=== PATIENT | female | born 1975 | race African-American/Black ===

== ENCOUNTER 2018-02-21 16:31 | Emergency (ER) | payer OTHER ==
[2018-02-21 16:36] VITALS: TEMP 98; BMI 32.3
--- NOTE | 2018-02-21 16:36 | PDOC ---
Rapid Medical Evaluation Time Seen by Provider: 02/21/18 16:32 Medical Evaluation: Allergies Allergy/AdvReac Type Severity Reaction Status Date / Time No Known Allergies Allergy Verified 08/26/17 17:34 I have performed a brief in-person evaluation of this patient. The patient presents with a chief complaint of: took catapress patch off today. dizziness, body aches x 2 days Pertinent physical exam findings: 160/103 BP I have ordered the following: labs, hcg, EKG The patient will proceed to the ED for further evaluation. Discharge Disposition - Diagnosis Headache, HTN (hypertension) - Referrals - Patient Instructions - Post Discharge Activity
[2018-02-21 16:57] LABS: BASO % 0.9 % (0-2.0); EOS % 4.7 % (0-4.5); HEMATOCRIT 37.5 % (32.4-45.2); HEMOGLOBIN 12.6 GM/dL (10.7-15.3); LYMPH % 17.6 % (8-40); MCH 30.3 pg (25.7-33.7); MCHC 33.5 g/dl (32.0-36.0); MEAN CELL VOLUME 90.3 fl (80-96); MEAN PLT VOLUME 9.1 fl (7.5-11.1); MONO % 4.5 % (3.8-10.2); NEUT % 72.3 % (42.8-82.8); PLATELET COUNT 267 K/MM3 (134-434); RBC 4.15 M/mm3 (3.60-5.2); RDW 13.8 % (11.6-15.6); WHITE BLOOD COUNT 11.9 K/mm3 (4.0-10.0)
--- NOTE | 2018-02-21 17:00 | PDOC ---
History of Present Illness - General Chief Complaint: Blood Pressure Problem Stated Complaint: PCP SENT Time Seen by Provider: 02/21/18 16:32 - History of Present Illness Initial Comments: 02/21/18 17:31 The patient is a 42 year old female with a history of HTN, HLD who presents for evaluation of elevated blood pressure. The patient reports a 2 day history of migraine headache and generalized body aches following a viral GI illness. She noted that she presented to her GI specialist 1 day ago and was noted to be dehydrated. Today she presented to her primary care provider who noted her blood pressure to be elevated. The patient notes that she is on a clonadine patch and discontinued that patch today and usually reapplies it the next day. She otherwise denies fevers, chills, SOB, chest pain, nausea, vomiting, abdominal pain, numbness, weakness, or changes with urination or bowel movements. Past History - Past Medical History Allergies/Adverse Reactions: Allergies Allergy/AdvReac Type Severity Reaction Status Date / Time No Known Allergies Allergy Verified 02/21/18 16:33 Home Medications: Ambulatory Orders Labetalol HCl 400 mg PO BID 07/20/12 Loratadine [Claritin] 10 mg PO HS 07/20/12 Atorvastatin Ca [Lipitor] 20 mg PO HS 08/26/17 Clonidine HCl 0.3 mg PO BID 08/26/17 Losartan Potassium 25 mg PO DAILY 08/26/17 Nifedipine [Procardia Xl] 90 mg PO DAILY 08/26/17 Anemia: Yes COPD: No DVT: No HTN: Yes Hypercholesterolemia: Yes - Suicide/Smoking/Psychosocial Hx Smoking Status: No Smoking History: Never smoked Have you smoked in the past 12 months: No Number of Cigarettes Smoked Daily: 0 Information on smoking cessation initiated: No Hx Alcohol Use: No Drug/Substance Use Hx: No Substance Use Type: None Review of Systems - Review of Systems Comments:: 02/21/18 17:34 Constitutional: Body AchesNo fevers, chills, HEENT: No Rhinorrhea, nasal congestion, visual changes Cardiovascular: No chest pain, syncope, palpitations, lightheadedness Respiratory: No Cough, SOB, Hemoptysis, Gastrointestinal: No Abdominal pain, Nausea, Vomiting, Constipation, Diarrhea, Melena Genitourinary: No Dysuria, Frequency, Urgency, Hesitancy, Hematuria, Flank pain Musculoskeletal: No Myalgia, arthralgia Skin: No rashes, itching, bruising, pallor Neurologic: Headache. No Dizziness, Numbness, Weakness, or Tingling Psychiatric: No Hallucinations. No SI or HI *Physical Exam - Vital Signs Last Vital Signs Temp Pulse Resp BP Pulse Ox 98.0 F 100 H 18 162/103 100 02/21/18 16:33 02/21/18 16:33 02/21/18 16:33 02/21/18 16:33 02/21/18 16:33 - Physical Exam Comments: 02/21/18 17:34 General Appearance: Nourished. No Apparent Distress HEENT: EOMI, JA. No Pharyngeal Erythema, Tonsillar Exudate, Tonsillar Erythema Neck: No Cervical Lymphadenopathy Respiratory/Chest: Lungs Clear, Normal Breath Sounds. No Crackles, Rales, Rhonchi, Wheezing Cardiovascular: Regular Rhythm, Regular Rate. No Murmur, Gallops, Rubs Gastrointestinal/Abdominal: Normal Bowel Sounds, Soft. 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 Heart Score/ECG Review #1 ECG reviewed & interpreted by me at: 18:22 General ECG Interpretation: Sinus Rhythm, Normal Rate, Normal Intervals, No acute ischemic changes ED Treatment Course - LABORATORY CBC & Chemistry Diagram: 02/21/18 16:51 02/21/18 16:51 Medical Decision Making - Medical Decision Making 02/21/18 17:35 The patient is a 42 year old female with a history of HTN, HLD who presents for evaluation of elevated blood pressure. Differential includes but is not limited to: Dehydration, Clonadine Withdrawal, Infectious, Metabolic derangement. Given the patient's history and physical exam, it is possible the patient's symptoms are due to a combination of clonodine withdrawal and dehydration. We will obtain a cbc, cmp, ua, ekg to evaluate further for possible etiologies. We will treat with iv ibuprofen, iv fluids, and a dose of clonodine here in the ED and continue to monitor and reassess while here in the ED. 02/21/18 19:23 CBC, cmp, ua are unremarkable. The patient is pending a plain film of the abdomen and reassessment prior to likely discharge. The patient was signed out to the night team. *DC/Admit/Observation/Transfer Diagnosis at time of Disposition: Headache Qualifiers: Headache type: unspecified Headache chronicity pattern: unspecified pattern Intractability: not intractable Qualified Code(s): R51 - Headache HTN (hypertension) Qualifiers: Hypertension type: unspecified Qualified Code(s): I10 - Essential (primary) hypertension Diarrhea Qualifiers: Diarrhea type: unspecified type Qualified Code(s): R19.7 - Diarrhea, unspecified - Discharge Dispostion Disposition: HOME Condition at time of disposition: Stable - Referrals Referrals: Estevan Valdes MD [Staff Physician] - Hakeem Shepherd MD [Staff Physician] - Daquan Cruz MD [Primary Care Provider] - - Patient Instructions Printed Discharge Instructions: DI for High Blood Pressure, DI for Diarrhea and Traveler's Diarrhea -- Adult Additional Instructions: Please return to the ER if you experience concerning or worsening symptoms including worsening headache, vomiting, or fevers. Your lab results and imaging studies were normal here in the ER. It is important that you call to schedule a follow up appointment with your primary care provider within 2-3 days to discuss your ER visit and further management of your symptoms. Please place your clonidine patch back on. Please follow up with your PMD, the GI specialist (with the stool specimen) and your cherry dipper. - Post Discharge Activity
[2018-02-21] MEDS ORDERED: SODIUM CHLORIDE 1,000 ML IV STA (17:11)
[2018-02-21] MEDS ORDERED: cloNIDine HCL 0.1 MG TABLET PO ONE (17:11)
[2018-02-21] MEDS ORDERED: ACETAMINOPHEN 1000 MG/100 ML VIAL (NON FORMULARY) IVPB ONE (17:11)
[2018-02-21 17:13] LABS: URINE APPEARANCE CLEAR; URINE BILIRUBIN NEGATIVE (<2.0 mg/dL); URINE BLOOD NEGATIVE (NEGATIVE); URINE COLOR LTYELLOW; URINE GLUCOSE (UA) NEGATIVE (NEGATIVE); URINE KETONE NEGATIVE (NEGATIVE); URINE LEUK ESTERASE NEGATIVE (NEGATIVE); URINE NITRITE NEGATIVE (NEGATIVE); URINE PROTEIN NEGATIVE (NEGATIVE)
[2018-02-21 17:17] LABS: HCG,QUALITATIVE URINE NEGATIVE
[2018-02-21] MEDS ORDERED: IBUPROFEN 800 MG/8 ML IJ IVPB ONE ×2 (17:20→17:23)
[2018-02-21] MEDS ORDERED: cloNIDine HCL 0.1 MG TABLET ONE (17:37)
[2018-02-21 17:41] LABS: ALBUMIN 3.6 g/dl (3.4-5.0); ANION GAP 7 (8-16); BLOOD UREA NITROGEN 17 mg/dL (7-18); CALCIUM 8.7 mg/dL (8.5-10.1); CHLORIDE 110 mmol/L (98-107); CO2 23 mmol/L (21-32); CREATININE 1.1 mg/dL (0.55-1.02); GLUCOSE,RANDOM 120 mg/dL (74-106); POTASSIUM 3.6 mmol/L (3.5-5.1); SGOT/AST 15 U/L (15-37); SODIUM 140 mmol/L (136-145)
[2018-02-21 17:50] LABS: ALK PHOS 116 U/L (45-117); BILIRUBIN,TOTAL 0.3 mg/dL (0.2-1.0); SGPT/ALT 25 U/L (12-78); TOT PROT 7.4 g/dl (6.4-8.2)
--- NOTE | 2018-02-21 17:55 | PDOC ---
Attending Attestation - HPI HPI: 02/21/18 18:05 The patient is a 42 year old female, with a significant past medical history of HTN, anemia and HLD, who presents to the emergency department complaining of lightheadedness, headache and body aches over the past couple of days after getting over a viral GI issue. She notes that since receiving IV fluids she has felt better. She reports that 1 day ago she saw her GI specialist who noted her to be dehydrated. The patient notes that she is on a clonadine patch and discontinued that patch today and usually reapplies it the next day. The patient denies chest pain, shortness of breath, fever, chills, nausea, vomiting, diarrhea and constipation. 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 No acute distress. Head: Normocephalic. Atraumatic Eyes: PERRL. EOMI. Conjunctivae are not pale. ENT: Mucous membranes are moist and intact. Posterior pharynx without exudates or erythema. Uvula midline. Neck: Supple. Full ROM. No lymphadenopathy. Cardiovascular: Regular rate. Regular rhythm. S1, S2 regular. Distal pulses are 2+ and symmetric. Pulmonary/Chest: No evidence of respiratory distress. Clear to auscultation bilaterally No wheezing, rales or rhonchi. Abdominal: (+) Mild epigastirc tenderness. Soft and non-distended. No rebound, guarding or rigidity. No organomegaly. No palpable masses. Good bowel sounds. Back: No CVA tenderness. Musculoskeletal: No edema. No cyanosis. No clubbing. Full range of motion in all extremities. Nocalf tenderness. Radial/pedal pulses are intact and 2+ bilaterally Skin: Skin is warm and dry. No petechiae. No purpura. Neurological: Alert and oriented to person, place, and time. Cranial nerves II -XII are grossly intact. Normal speech. Strength is grossly symmetric. No sensory deficits. Psychiatric: Good eye contact. Normal interaction, affect and behavior. <Freddie Onofre - Last Filed: 02/21/18 18:05> - Resident Resident Name: Luca Leary - ED Attending Attestation I have performed the following: I have examined & evaluated the patient, The case was reviewed & discussed with the resident, I agree w/resident's findings & plan, Exceptions are as noted - Medical Decision Making 02/21/18 17:53 I, Dr. Yolanda Ozuna, DO, attest that this document has been prepared under my direction and personally reviewed by me in its entirety. I further attest, that it accurately reflects all work, treatment, procedures and medical decision -making performed by me. 02/21/18 17:53 a/p: 42yo female with 3 weeks of diarrhea -crampy epigastric abd pain -took of clonidine patch today -lightheaded -seen by GI yesterday who gave her a stool kit, but she hasn't submitted it yet -no fevers -no cp/sob -no blurred vision or change in vision -achy arms and legs -no paresthesias -generally weak all over 02/21/18 20:20 pt states feeling better no longer with achy arms and legs no kaminski bp improved follows with Lantin for GI stable for d/c to home 02/21/18 20:43 re-eval: pt states feeling better. discussed her labs with in detail and the xray. BP improved. stable for d/c to home. will put her clonidine patch back on at home. <Yolanda Ozuna - Last Filed: 02/21/18 20:45> Discharge Disposition - Discharge Dispostion Last Admission D/C Date: 09/21/08 Decision to Admit order: No <Yolanda Ozuna - Last Filed: 02/21/18 20:45> - Diagnosis Diarrhea Headache Qualifiers: Headache type: unspecified Headache chronicity pattern: unspecified pattern Intractability: not intractable Qualified Code(s): R51 - Headache HTN (hypertension) Qualifiers: Hypertension type: unspecified Qualified Code(s): I10 - Essential (primary) hypertension - Discharge Dispostion Disposition: HOME Condition at time of disposition: Stable - Referrals Referrals: Daquan Cruz MD [Primary Care Provider] - Hakeem Shepherd MD [Staff Physician] - Estevan Valdes MD [Staff Physician] - - Patient Instructions Printed Discharge Instructions: DI for High Blood Pressure, DI for Diarrhea and Traveler's Diarrhea -- Adult Additional Instructions: Please return to the ER if you experience concerning or worsening symptoms including worsening headache, vomiting, or fevers. Your lab results and imaging studies were normal here in the ER. It is important that you call to schedule a follow up appointment with your primary care provider within 2-3 days to discuss your ER visit and further management of your symptoms. Please place your clonidine patch back on. 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 - Post Discharge Activity Heart Score/ECG Review - ECG Intrepretation Comment:: 02/21/18 18:15 sinus at 77, nl axis, nl interval, no acute st/t wave findings <Yolanda Ozuna - Last Filed: 02/21/18 20:45>
[2018-02-21 20:10] VITALS: BP 135/91; PULSE 71
--- NOTE | 2018-02-22 11:30 | EKG ---
Test Reason : Blood Pressure : / mmHG Vent. Rate : 077 BPM Atrial Rate : 077 BPM P-R Int : 170 ms QRS Dur : 078 ms QT Int : 388 ms P-R-T Axes : 017 021 023 degrees QTc Int : 439 ms NORMAL SINUS RHYTHM NORMAL ECG WHEN COMPARED WITH ECG OF 20-JUL-2012 19:10, NO SIGNIFICANT CHANGE WAS FOUND Confirmed by DRE COBURN MD ([id number]) on 02/22/2018 11:30:15 AM Referred By: Confirmed By:DRE COBURN MD
== END 2018-02-21 21:05 | disposition home or self-care (01) ==
LOC: JER 16:31
PROC: 3E033GC Introduction of Other Therapeutic Substance into Peripheral Vein, Percutaneous Approach (ICD-10-PCS; principal; 2018-02-21)
PROC: 3E0337Z Introduction of Electrolytic and Water Balance Substance into Peripheral Vein, Percutaneous Approach (ICD-10-PCS; 2018-02-21)
DX: I10 Essential (primary) hypertension (principal); R19.7 Diarrhea, unspecified; R51 Headache; E78.5 Hyperlipidemia, unspecified
CPT/HCPCS: 36415; 74019-TC-FY; 80053; 81003; 82550; 84484; 84703; 85025; 93005; 93010; 96361; 96374; 99283-25; J0735; J7030

== ENCOUNTER 2018-07-23 11:14 | Inpatient (IN) | payer OTHER ==
[2018-07-23] MEDS ORDERED: SODIUM CHLORIDE 0.9% 1000 ML INFUS.BAG IV ONE (12:44)
[2018-07-23] MEDS ORDERED: ONDANSETRON 4 MG/2 ML VIAL IVPUSH ONE (12:44)
[2018-07-23] MEDS ORDERED: morphine CARPU-JECT 4 MG/1 ML DISP.SYRIN IVPUSH ONE ×2 (12:44→13:49)
--- NOTE | 2018-07-23 13:00 | PDOC ---
History of Present Illness - General Chief Complaint: Pain, Acute Stated Complaint: PAIN (PCP SENT) Time Seen by Provider: 07/23/18 11:59 History Source: Patient - History of Present Illness Initial Comments: 07/23/18 12:53 42F w/ pmhx of HTN, HLD, and GERD presents to the ED with complaints of abdominal pain. Pt reports the abd pain started yesterday and has been progressively getting worse. Pain is described 06/27 and is diffuse throughout her abdomen radiating to her back. She states she has had a mass above her umbilicus that has become increasingly tender since yesterday and has also increased in size. She states she took Tylenol for the pain at home, but with no relief. Last BM was this morning, non-bloody, regular. Denies kaminski/d, f/c, n/ v. Admits to being unable to eat anything since yesterday due to the abdominal pain. Of note, pt had a recent colonoscopy done on 07/16/[address] Shepherd. Pt reports multiple polyps were removed, but the rest of the colonoscopy results were normal. She also states taking Flagyl 250 mg PO TID prescribed by her GI after the colonoscopy. 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 Lives at home alone in an apt. Diet: Lactose intolerant Past History - Past Medical History Allergies/Adverse Reactions: Allergies Allergy/AdvReac Type Severity Reaction Status Date / Time No Known Allergies Allergy Verified 07/23/18 11:17 Home Medications: Ambulatory Orders Labetalol HCl 400 mg PO BID 07/20/12 Atorvastatin Ca [Lipitor] 20 mg PO HS 08/26/17 Clonidine HCl 0.3 mg PO BID 08/26/17 Losartan Potassium 25 mg PO DAILY 08/26/17 Nifedipine [Procardia Xl] 90 mg PO DAILY 08/26/17 Anemia: Yes COPD: No DVT: No HTN: Yes Hypercholesterolemia: Yes - Suicide/Smoking/Psychosocial Hx Smoking Status: No Smoking History: Never smoked Have you smoked in the past 12 months: No Number of Cigarettes Smoked Daily: 0 Hx Alcohol Use: No Drug/Substance Use Hx: No Substance Use Type: None Review of Systems - Review of Systems Able to Perform ROS?: Yes Is the patient limited Mongolian proficient: No Constitutional: Yes: Loss of Appetite. No: Chills, Fever, Night Sweats, Weakness HEENTM: No: Recent change in vision Respiratory: No: Cough, Orthopnea, Shortness of Breath, SOB with Exertion, SOB at Rest ABD/GI: Yes: Abdominal Distended, Poor Appetite, Abdominal cramping. No: Constipated, Diarrhea, Nausea, Rectal Bleeding, Vomiting Musculoskeletal: Yes: Back Pain Neurological: No: Headache, Dizziness *Physical Exam - Vital Signs Last Vital Signs Temp Pulse Resp BP Pulse Ox 98.5 F 70 24 H 175/106 H 98 07/23/18 11:15 07/23/18 11:15 07/23/18 11:15 07/23/18 11:15 07/23/18 11:15 - Physical Exam General Appearance: Yes: Mild Distress HEENT: positive: Normal Voice Respiratory/Chest: positive: Lungs Clear, Normal Breath Sounds. negative: Chest Tender, Respiratory Distress, Accessory Muscle Use Cardiovascular: positive: Regular Rhythm, Regular Rate, S1, S2 Gastrointestinal/Abdominal: positive: Guarding, Hernia (supra-umbilical) Musculoskeletal: negative: CVA Tenderness Neurologic: positive: Fully Oriented, Alert ED Treatment Course - LABORATORY CBC & Chemistry Diagram: 07/23/18 13:45 07/23/18 13:45 Medical Decision Making - Medical Decision Making 07/23/18 13:03 Abd pain 2/2 ventral hernia -Will give Morphine for pain, Zofran -CBC/CMP, PT/INR, EKG -Will attempt to reduce ventral hernia 07/23/18 13:56 -Attempted reduction of hernia. Partially reduced. -Will contact surgery and get further imaging 07/23/18 13:56 -Will order CT abdomen/pel w/ PO contrast for further evaluation 07/23/18 15:33 -CBC/CMP wnl -IV Abx given 07/23/18 16:15 -Surgery consulted, Dr Johnson made aware. Will proceed to OR for incarcerated hernia repair after CT scan abd/pel with PO contrast. Admitted under Dr. Cowart. *DC/Admit/Observation/Transfer Diagnosis at time of Disposition: Incarcerated hernia - Referrals - Patient Instructions - Post Discharge Activity
[2018-07-23] MEDS ORDERED: morphine SULFATE 4 MG/ML VIAL ONE ×2 (13:04→14:10)
[2018-07-23] MEDS ORDERED: ONDANSETRON 4 MG/2 ML VIAL ONE (13:04)
[2018-07-23 13:48] LABS: BASO % 0.9 % (0-2.0); EOS % 2.7 % (0-4.5); HEMATOCRIT 35.8 % (32.4-45.2); LYMPH % 21.7 % (8-40); MCH 30.1 pg (25.7-33.7); MCHC 33.6 g/dl (32.0-36.0); MEAN CELL VOLUME 89.6 fl (80-96); MEAN PLT VOLUME 8.5 fl (7.5-11.1); NEUT % 70.7 % (42.8-82.8); PLATELET COUNT 264 K/MM3 (134-434); RBC 3.99 M/mm3 (3.60-5.2); RDW 13.7 % (11.6-15.6); WHITE BLOOD COUNT 9.7 K/mm3 (4.0-10.0)
--- NOTE | 2018-07-23 13:56 | PDOC ---
Attending Attestation - HPI HPI: 07/23/18 13:56 The patient is a 42 year old female with a past medical history of GERD, hypertension, and hyperlipidemia who presents to the emergency department for evaluation of abdominal pain. Patient reports sharp abdominal pain ranked 10/10 in severity, radiating to the flank since yesterday. Patient visited PCP (Dr. Daquan Cruz) today and was prompted to visit ED for further evaluation. Patient had colonoscopy done with Dr. Shepherd which showed few polyps. Patient reports taking tylenol with no alleviation to her pain. Denies fevers, chills, nausea, or vomiting. At presentation, patient reports mass above umbilicus. Denies prior history of hernias. - Physicial Exam PE: Vitals: Triage Vital signs reviewed General Appearance: no acute distress, well nourished well developed, Head: Atraumatic, normocephalic Neck: Supple Chest Wall: Nontender Cardiac: Regular rate and rhythm, no murmurs, no rubs, no gallops, Lungs: Clear to auscultation bilateral, good air movement bilaterally, Abdomen: (+)Incarcerated umbilical hernia. (+)Diffuse abdominal tenderness. Extremities: Full range of motion to all extremities, no cyanosis, clubbing, or edema Skin: Warm and dry, no rashes or lesions, no petechiae Psych: normal mood, normal affect. - Medical Decision Making The patient is a 42 year old female with a past medical history of hypertension and hyperlipidemia who presents to the emergency department for evaluation of abdominal pain. Plan: EKG CBC CMP IV Medication 07/23/18 15:[address] Cowart at 15:30. <Js Palma - Last Filed: 07/23/18 15:43> - Resident Resident Name: Najma Conrad - ED Attending Attestation I have performed the following: I have examined & evaluated the patient, The case was reviewed & discussed with the resident, I agree w/resident's findings & plan, Exceptions are as noted - Medical Decision Making 07/23/18 16:12 Pt. presents with incarcerated umbilical hernia on physical exam patient placed in Trendelenburg given IV morphine ice pack placed over incarcerated hernia able to somewhat decompress hernia but not completely reduce it Dr. Johnson surgery consult in Requested CT abdomen pelvis. Patient very difficult access only of able to obtain IV access through an EJ We'll obtain CT abdomen and pelvis with by mouth contrast We'll send patient to OR after CAT scan for surgical repair of incarcerated hernia <Hill Mcgraw - Last Filed: 07/23/18 16:14> Attestations - Attestations Documentation prepared by Js Palma, acting as bio medical technician for Hill Mcgraw MD. <Js Palma - Last Filed: 07/23/18 15:43>
[2018-07-23 14:13] LABS: INR 1.1 (0.83-1.09)
[2018-07-23 14:16] LABS: ACTIVATED PTT 29.4 SECONDS (25.2-36.5)
--- NOTE | 2018-07-23 14:22 | CONSULT ---
Consult Consult Specialty:: Gerneral Surgery Reason for Consultation:: incarcerated ventral hernia - History of Present Illness Chief Complaint: abdominal pain History of Present Illness: 42 yo PMH HTN, HLD, obesity and GERD s/p presents to the ED with complaints of abdominal pain. Patient reports the abdominal pain started yesterday and has been progressively getting worse. Pain is described 06/27 and is diffuse throughout her abdomen radiating to her back. She states she has had a mass above her umbilicus that has become increasingly tender since yesterday and has also increased in size. She states she took Tylenol for the pain at home , but with no relief. Last BM was this morning, non-bloody, regular. Denies kaminski/d , f/c, n/v. Admits to being unable to eat anything since yesterday due to the abdominal pain. We were asked to assess. 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 [employer] Place of : [facility] History of Recent Travel: No Home Medications - Allergies Allergies/Adverse Reactions: Allergies Allergy/AdvReac Type Severity Reaction Status Date / Time No Known Allergies Allergy Verified 07/23/18 11:17 - Home Medications Home Medications: Ambulatory Orders Labetalol HCl 400 mg PO BID 07/20/12 Atorvastatin Ca [Lipitor] 20 mg PO HS 08/26/17 Clonidine HCl 0.3 mg PO BID 08/26/17 Losartan Potassium 25 mg PO DAILY 08/26/17 Nifedipine [Procardia Xl] 90 mg PO DAILY 08/26/17 Review of Systems - Review of Systems Constitutional: denies: Chills, Fever, Unintentional Wgt. Loss Eyes: denies: Blind Spots, Recent Change in Vision HENT: denies: Difficult Swallowing, Throat Pain Neck: denies: Pain on Movement, Swollen Glands Cardiovascular: denies: Chest Pain, Palpitations Respiratory: denies: Cough, SOB Gastrointestinal: reports: Abdominal Pain, Bloating, Nausea, Vomiting. denies: Constipation, Diarrhea, Rectal Bleeding Genitourinary: denies: Discharge, Dysuria, Flank Pain Breasts: reports: No Symptoms Reported. denies: Pain Integumentary: denies: Pallor, Pruritis, Rash Neurological: denies: Seizure, Syncope Endocrine: denies: Unexplained Weight Gain, Unexplained Weight Loss Hematology/Lymphatic: denies: Easily Bruised, Excessive Bleeding Psychiatric: denies: Anxiety, Depression Physical Exam Vital Signs: Vital Signs Temperature 98.5 F 07/23/18 11:15 Pulse Rate 70 07/23/18 11:15 Respiratory Rate 24 H 07/23/18 11:15 Blood Pressure 175/106 H 07/23/18 11:15 O2 Sat by Pulse Oximetry (%) 98 07/23/18 11:15 Constitutional: Yes: No Distress, Calm, Obese. No: Anxious Eyes: Yes: Conjunctiva Clear, EOM Intact HENT: Yes: Atraumatic, Normocephalic Neck: Yes: Supple, Trachea Midline Cardiovascular: Yes: Regular Rate and Rhythm, S1, S2 Respiratory: Yes: Regular, CTA Bilaterally Gastrointestinal: Yes: Normal Bowel Sounds, Soft, Abdomen, Obese, Hernia ( ventral hernia in supra umbilical position, 4cm X6cm, tender non-reducbile), Palpable Mass, Tenderness. No: Distention, Rectal Bleeding, Tenderness, Epigastrium, Tenderness, Rebound ...Rectal Exam: Yes: Deferred Renal/: No: CVA Tenderness - Left, CVA Tenderness - Right Musculoskeletal: No: Muscle Pain, Muscle Weakness Extremities: No: Cool, Cyanosis Edema: No Peripheral Pulses WNL: Yes Integumentary: No: Bruising, Jaundice, Petechiae, Rash Neurological: Yes: Alert, Oriented Psychiatric: Yes: Alert, Oriented Labs: CBC, BMP 07/23/18 13:45 Imaging - Results Cat Scan: Pending Ultrasound: Report Reviewed, Image Reviewed (hernia with bowel) Problem List - Problems (1) Ventral hernia without obstruction or gangrene Assessment/Plan: 42 yo female MMP obesity incarcerated ventral hernia in the supraumbilical position with bowel involvement NPO and IVF hydration IV antibiotcs pre op OR for Laparoscopic possible open ventral hernia with mesh, possible bowel ressection Discussed with patient risks, benefits and alternatives to aforemntioned procedure, including but not limited to bleeding, infection, injury to adjacent structures, leak or injury, intraabdominal abscess, incisional hernia, need for further procedures, ; alternatives include antibiotics, delayed or no surgery - risks of this include failure of nonoperative therapy, perforation, sepsis, recurrence, . Patient desires to proceed with operation - will take to OR for above. Informed consent signed for same. Code(s): K43.9 - VENTRAL HERNIA WITHOUT OBSTRUCTION OR GANGRENE (2) Obesity (BMI 30.0-34.9) Code(s): E66.9 - OBESITY, UNSPECIFIED (3) HLD (hyperlipidemia) Code(s): E78.5 - HYPERLIPIDEMIA, UNSPECIFIED Qualifiers: Hyperlipidemia type: pure hypercholesterolemia Qualified Code(s): E78.00 - Pure hypercholesterolemia, unspecified; E78.0 - Pure hypercholesterolemia (4) GERD (gastroesophageal reflux disease) Code(s): K21.9 - GASTRO-ESOPHAGEAL REFLUX DISEASE WITHOUT ESOPHAGITIS Qualifiers: Esophagitis presence: without esophagitis Qualified Code(s): K21.9 - Gastro -esophageal reflux disease without esophagitis (5) HTN (hypertension) Code(s): I10 - ESSENTIAL (PRIMARY) HYPERTENSION Qualifiers: Hypertension type: essential hypertension Qualified Code(s): I10 - Essential (primary) hypertension
[2018-07-23 14:42] LABS: ALBUMIN 3.6 g/dl (3.4-5.0); ALK PHOS 98 U/L (45-117); ANION GAP 6 MMOL/L (8-16); BILIRUBIN,TOTAL 0.3 mg/dL (0.2-1); BLOOD UREA NITROGEN 9 mg/dL (7-18); CALCIUM 8.8 mg/dL (8.5-10.1); CHLORIDE 106 mmol/L (98-107); CO2 27 mmol/L (21-32); CREATININE 0.7 mg/dL (0.55-1.3); GLUCOSE,RANDOM 78 mg/dL (74-106); POTASSIUM 3.7 mmol/L (3.5-5.1); SGOT/AST 21 U/L (15-37); SGPT/ALT 23 U/L (13-61); SODIUM 139 mmol/L (136-145); TOT PROT 7.1 g/dl (6.4-8.2)
[2018-07-23] MEDS ORDERED: fentaNYL CITRATE 250 MCG/5 ML VIAL ONE (15:21)
[2018-07-23] MEDS ORDERED: ROCURONIUM BROMIDE 50 MG/5 ML VIAL ONE (15:21)
[2018-07-23] MEDS ORDERED: PROPOFOL 20 ML ONE (15:21)
[2018-07-23] MEDS ORDERED: MIDAZOLAM HCL 2 MG/2 ML SINGLE DOSE VIAL ONE (15:21)
[2018-07-23] MEDS ORDERED: DEXAMETHASONE SOD PHOSPHATE 4 MG/1 ML VIAL ONE ×2 (15:21→17:50)
[2018-07-23] MEDS ORDERED: LIDOCAINE HCL/PF 2% SDV 5ML VIAL ONE (15:21)
[2018-07-23] MEDS ORDERED: ceFAZolin 2 GRAM PREMIX BAG IVPB ONE (15:45)
[2018-07-23] MEDS ORDERED: LACTATED RINGERS SOLUTION 1,000 ML/1,000 ML INFUS.BAG IV SCH (15:45)
[2018-07-23] MEDS ORDERED: ceFAZolin SODIUM 1 GM VIAL ONE ×2 (17:16→22:13)
[2018-07-23] MEDS ORDERED: ceFAZolin SODIUM 1 GM VIAL IVPB ONE (17:20)
[2018-07-23] MEDS ORDERED: BUPIVACAINE HCL/PF 0.5% (5MG/ML) 10 ML VIAL IJ ONE (18:45)
[2018-07-23] MEDS ORDERED: ONDANSETRON 4 MG/2 ML VIAL IVPUSH PRN ×2 (19:07→19:25)
[2018-07-23] MEDS ORDERED: morphine CARPU-JECT 2 MG/1 ML DISP.SYRIN IVPUSH PRN (19:07)
[2018-07-23] MEDS ORDERED: IBUPROFEN 600 MG TABLET (FP) PO PRN ×2 (19:07→19:25)
[2018-07-23] MEDS ORDERED: ACETAMINOPHEN 325 MG TABLET (FP) PO PRN ×2 (19:07→19:25)
[2018-07-23] MEDS ORDERED: ceFAZolin 2 GRAM PREMIX BAG IVPB SCH (19:15)
[2018-07-23] MEDS ORDERED: LABETALOL HCL 5 MG/1 ML (100MG/20 ML VIAL) IVPUSH ONE (19:22)
--- NOTE | 2018-07-23 19:25 | OP ---
Operative Note - Note: Operative Date: 07/23/18 Pre-Operative Diagnosis: incarcerated ventral hernia repair Operation: laparoscopic ventral veneral repair with mesh Findings: ricter type ventral hwernia with 2X1cm defect in the superumbilical position. Implants: BARD Echo PS 8X8 inch oval mesh Post-Operative Diagnosis: Same as Pre-op Surgeon: Daquan Johnson Scrap Burner: Spenser Dotson Anesthesiologist/MIXER TENDER: Derek Clement Anesthesia: General, Local Specimens Removed: none Estimated Blood Loss (mls): 10 Fluid Volume Replaced (mls): 1,000 Operative Report Dictated: Yes
[2018-07-23] MEDS ORDERED: hydrALAZINE HCL 20 MG/ML VIAL ONE (19:43)
[2018-07-23] MEDS ORDERED: CEFAZOLIN 2 GM in SODIUM CHLORIDE 100 ML IVPB SCH (19:45)
--- NOTE | 2018-07-23 20:17 | HP ---
Admitting History and Physical - Admission History of Present Illness: Pt is a 42 y/o female w/ PMH significant for HTN, HLD, obesity and GERD. Pt's surgical history includes a s/p . Pt presented to the ED with complaints of abdominal pain. Patient reports the abdominal pain started yesterday and has been progressively getting worse. Pain is described 06/27 and is diffuse throughout her abdomen radiating to her back. She states she has had a mass above her umbilicus that has become increasingly tender since yesterday and has also increased in size. Pt also states that she has been unable to eat due to worsening of abdominal pain. Pt had colonoscopy in 07/05 w/ multiple polyos removed. 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 [employer] History of Recent Travel: No Home Medications - Allergies Allergies/Adverse Reactions: Allergies Allergy/AdvReac Type Severity Reaction Status Date / Time No Known Allergies Allergy Verified 07/23/18 11:17 - Home Medications Home Medications: Ambulatory Orders Labetalol HCl 400 mg PO BID 07/20/12 Atorvastatin Ca [Lipitor] 20 mg PO HS 08/26/17 Clonidine HCl 0.3 mg PO BID 08/26/17 Losartan Potassium 25 mg PO DAILY 08/26/17 Nifedipine [Procardia Xl] 90 mg PO DAILY 08/26/17 Family Disease History - Family Disease History Family History: Unremarkable Review of Systems - Review of Systems Constitutional: reports: Loss of Appetite HENT: reports: No Symptoms Neck: reports: No Symptoms Cardiovascular: reports: No Symptoms Respiratory: reports: No Symptoms Gastrointestinal: reports: Abdominal Pain Genitourinary: reports: No Symptoms Physical Examination Vital Signs: Vital Signs Temperature 97.9 F 07/23/18 19:05 Pulse Rate 82 07/23/18 19:30 Respiratory Rate 14 07/23/18 19:30 Blood Pressure 160/103 H 07/23/18 19:30 O2 Sat by Pulse Oximetry (%) 99 07/23/18 19:30 Constitutional: Yes: Well Nourished HENT: Yes: WNL Neck: Yes: WNL, Supple Cardiovascular: Yes: WNL, Regular Rate and Rhythm Respiratory: Yes: WNL, Regular, CTA Bilaterally Gastrointestinal: Yes: Abdomen, Obese, Other ((+) generalized tenderness w/ guarding (+) supra umbilical nonreducible hernia) Labs: CBC, BMP 07/23/18 13:45 07/23/18 13:45 Problem List - Problems (1) Ventral hernia without obstruction or gangrene Assessment/Plan: Pt seen by surgery and is to be brought to OR CT scan abdomen showed ventral hernia w/ herniating small bowel loop and air fluids levels Partial SBO Cont IVF/NPO Monitor labs Code(s): K43.9 - VENTRAL HERNIA WITHOUT OBSTRUCTION OR GANGRENE (2) HTN (hypertension) Assessment/Plan: Cont antihypertensives Will get cardio consult due to h/o accelerated HTN Code(s): I10 - ESSENTIAL (PRIMARY) HYPERTENSION Qualifiers: Hypertension type: essential hypertension Qualified Code(s): I10 - Essential (primary) hypertension (3) GERD (gastroesophageal reflux disease) Code(s): K21.9 - GASTRO-ESOPHAGEAL REFLUX DISEASE WITHOUT ESOPHAGITIS Qualifiers: Esophagitis presence: without esophagitis Qualified Code(s): K21.9 - Gastro -esophageal reflux disease without esophagitis (4) HLD (hyperlipidemia) Code(s): E78.5 - HYPERLIPIDEMIA, UNSPECIFIED Qualifiers: Hyperlipidemia type: pure hypercholesterolemia Qualified Code(s): E78.00 - Pure hypercholesterolemia, unspecified; E78.0 - Pure hypercholesterolemia
[2018-07-23] MEDS: LACTATED RINGERS SOLUTION 1,000 ML/1,000 ML INFUS.BAG IV SCH (21:20)
[2018-07-23] MEDS ORDERED: SODIUM CHLORIDE 100 ML IVPB ONE (22:13)
[2018-07-23] MEDS: ceFAZolin 2 GRAM PREMIX BAG IVPB SCH (22:25)
[2018-07-23] MEDS: morphine SULFATE 4 MG/ML VIAL IVPUSH PRN (23:39)
[2018-07-24 00:41] VITALS: BMI 33.0
[2018-07-24] MEDS: ceFAZolin 2 GRAM PREMIX BAG IVPB SCH ×2 (05:42→15:01)
[2018-07-24 07:04] LABS: BASO % 0.2 % (0-2.0); HEMATOCRIT 34.6 % (32.4-45.2); LYMPH % 8.9 % (8-40); MCH 31.3 pg (25.7-33.7); MCHC 34.8 g/dl (32.0-36.0); MEAN PLT VOLUME 8.8 fl (7.5-11.1); MONO % 4.9 % (3.8-10.2); PLATELET COUNT 285 K/MM3 (134-434); RBC 3.85 M/mm3 (3.60-5.2); RDW 13.4 % (11.6-15.6); WHITE BLOOD COUNT 12.3 K/mm3 (4.0-10.0)
[2018-07-24] MEDS: morphine SULFATE 4 MG/ML VIAL IVPUSH PRN ×2 (07:04→15:03)
[2018-07-24 07:40] LABS: ALBUMIN 3.1 g/dl (3.4-5.0); ALK PHOS 89 U/L (45-117); ANION GAP 11 MMOL/L (8-16); BILIRUBIN,TOTAL 0.3 mg/dL (0.2-1); BLOOD UREA NITROGEN 7 mg/dL (7-18); CALCIUM 8.1 mg/dL (8.5-10.1); CHLORIDE 106 mmol/L (98-107); CO2 25 mmol/L (21-32); CREATININE 0.9 mg/dL (0.55-1.3); GLUCOSE,RANDOM 117 mg/dL (74-106); POTASSIUM 3.5 mmol/L (3.5-5.1); SGOT/AST 11 U/L (15-37); SGPT/ALT 19 U/L (13-61); SODIUM 142 mmol/L (136-145); TOT PROT 6.4 g/dl (6.4-8.2)
--- NOTE | 2018-07-24 08:53 | CON.CARD ---
Cardiology Consult (text) - Consultation Consultation Note: Cardiology Consult Dictated IMP: Incarcerated ventral hernia, s/p lap repair Chronic HTN Hypertensive Heart disease REC: 1. Post op rx as per surgery 2. Continue current BP meds, currently controlled 3. DVT prophylaxis Will follow
[2018-07-24] MEDS ORDERED: PT OWN MED DRAWER 7, Y5N ONE (08:55)
--- NOTE | 2018-07-24 09:30 | PN ---
Progress Note, Physician Chief Complaint: abdominal pain History of Present Illness: 42 yo PMH HTN, HLD, obesity and GERD s/p presents to the ED with complaints of abdominal pain. - Current Medication List Current Medications: Active Medications Acetaminophen (Tylenol -) 650 mg PO Q4H PRN PRN Reason: PAIN LEVEL 1-5 Atorvastatin Calcium (Lipitor -) 20 mg PO HS [facility] Cefazolin Sodium/Dextrose (Ancef 2 Gm Premixed Ivpb -) 2 gm IVPB Q8H [facility] Stop: 07/24/18 22:29 Last Admin: 07/24/18 05:42 Dose: 2 gm Clonidine (Catapres -) 0.3 mg PO BID [facility] Heparin Sodium (Porcine) (Heparin -) 5,000 unit SQ BID [facility] Lactated Ringer's (Lactated Ringers Solution) 1,000 ml in 1,000 mls @ 100 mls/ hr IV ASDIR [facility] Last Admin: 07/23/18 21:20 Dose: 0 mls Ibuprofen (Motrin -) 600 mg PO Q6H PRN PRN Reason: PAIN LEVEL 1-5 Labetalol HCl (Normodyne -) 400 mg PO BID [facility] Losartan Potassium (Cozaar -) 25 mg PO DAILY [facility] Morphine Sulfate (Morphine Sulfate) 4 mg IVPUSH Q4H PRN PRN Reason: PAIN LEVEL 7 - 10 Last Admin: 07/24/18 07:04 Dose: 4 mg Nifedipine (Procardia Xl -) 90 mg PO DAILY [facility] Ondansetron HCl (Zofran Injection) 4 mg IVPUSH Q6H PRN PRN Reason: NAUSEA - Objective Vital Signs: Vital Signs Temperature 98.2 F 07/24/18 06:00 Pulse Rate 90 07/24/18 06:00 Respiratory Rate 20 07/24/18 06:00 Blood Pressure 146/72 07/24/18 06:00 O2 Sat by Pulse Oximetry (%) 100 07/23/18 21:35 Constitutional: Yes: Well Nourished, No Distress, Calm, Obese Eyes: Yes: Conjunctiva Clear, EOM Intact HENT: Yes: Atraumatic, Normocephalic Neck: Yes: Supple, Trachea Midline Cardiovascular: Yes: Regular Rate and Rhythm, S1, S2 Respiratory: Yes: Regular, CTA Bilaterally Gastrointestinal: Yes: Normal Bowel Sounds, Soft, Abdomen, Obese, Tenderness ( incisional) ...Rectal Exam: Yes: Deferred Genitourinary: No: CVA Tenderness - Left, CVA Tenderness - Right Musculoskeletal: No: Muscle Pain, Muscle Weakness Extremities: No: Cool, Cyanosis Edema: No Peripheral Pulses WNL: Yes Peripheral Pulses: Left Radial: 2+, Right Radial: 2+, Left Doralis Pedis: 2+, Right Dorsalis Pedis: 2+ Wound/Incision: Yes: Clean/Dry, Well Approximated, Open to air Neurological: Yes: Alert, Oriented Psychiatric: Yes: Alert, Oriented Labs: CBC, BMP 07/24/18 06:30 07/24/18 06:30 INR, PTT INR 1.10 (0.83-1.09) H 07/23/18 13:41 Problem List - Problems (1) Ventral hernia without obstruction or gangrene Assessment/Plan: 42 yo female MMP obesity incarcerated ventral hernia in the supraumbilical position with bowel involvement POD#1 s/p Laparoscopic Ventral Hernia repair with mesh. Diet as tolerated IVF hydration IV antibiotics for 24hours adequate analgesia encourage IS OOB and ambulate will follow Code(s): K43.9 - VENTRAL HERNIA WITHOUT OBSTRUCTION OR GANGRENE (2) Obesity (BMI 30.0-34.9) Code(s): E66.9 - OBESITY, UNSPECIFIED (3) HLD (hyperlipidemia) Code(s): E78.5 - HYPERLIPIDEMIA, UNSPECIFIED Qualifiers: Hyperlipidemia type: pure hypercholesterolemia Qualified Code(s): E78.00 - Pure hypercholesterolemia, unspecified; E78.0 - Pure hypercholesterolemia (4) GERD (gastroesophageal reflux disease) Code(s): K21.9 - GASTRO-ESOPHAGEAL REFLUX DISEASE WITHOUT ESOPHAGITIS Qualifiers: Esophagitis presence: without esophagitis Qualified Code(s): K21.9 - Gastro -esophageal reflux disease without esophagitis (5) HTN (hypertension) Code(s): I10 - ESSENTIAL (PRIMARY) HYPERTENSION Qualifiers: Hypertension type: essential hypertension Qualified Code(s): I10 - Essential (primary) hypertension
--- NOTE | 2018-07-24 09:30 | CONS ---
DATE OF CONSULTATION: DATE OF DICTATION: 07/24/2018 CONSULTATION REQUESTED BY: Sara Cowart MD REASON FOR CONSULTATION: Hypertension. The patient is a 42-year-old female with hypertension, hyperlipidemia, GERD, who presented to the emergency room with complaint of generalized abdominal pain which started the day prior to admission, getting progressively worse. She describe the pain as diffuse and 10/10, radiating to the back. She stated that she had a mass above her umbilicus that became increasingly tender. She denied fevers, chills, diarrhea. She had been unable to tolerate any p.o. She underwent an emergent CT scan of the abdomen and pelvis yesterday afternoon, and was found to have a midline ventral hernia above the umbilicus with herniating small bowel and an air-fluid level within the hernia sac. She then underwent emergent surgery for the incarcerated ventral hernia repair and underwent laparoscopic repair with mesh. She is currently stable, with no chest pain, shortness of breath, palpitations, PND, or orthopnea. PAST MEDICAL HISTORY: Significant for hypertension and hyperlipidemia. ALLERGIES: She has no known drug allergies. CURRENT MEDICATIONS: Include Tylenol 650 p.o. q.4 p.r.n., atorvastatin 20 mg p.o. at bedtime, cefazolin, clonidine 0.3 p.o. b.i.d., subcutaneous heparin 5000 subcutaneous b.i.d., Motrin 600 p.o. q.6 p.r.n., labetalol 400 mg p.o. b.i.d., losartan 25 mg p.o. daily, morphine sulfate 4 mg q.4 p.r.n., nifedipine XL 90 mg p.o. daily, and ondansetron 4 mg IV q.6 p.r.n. FAMILY HISTORY: Noncontributory. SOCIAL HISTORY: Nonsmoker. PHYSICAL EXAMINATION: Vital Signs: Afebrile, temperature 98.2, pulse 90 in sinus rhythm. Blood pressure over the last 12 hours has been ranging between 145 and 146 systolic over 70s. O2 saturation is 100 on 4 L. HEENT: She was anicteric, with no carotid bruits. Cardiovascular: The heart was regular. Chest: Clear. Abdomen: Nontender, soft. Extremities: No edema. DIAGNOSTIC DATA: Her ECG showed normal sinus at 64 beats per minute, with nonspecific T-wave changes in V3 and V4 and a mildly prolonged QT of 482. LABORATORY: White count 12.3, hematocrit 34.6, platelets 285, INR 1.1. Sodium 142, potassium 3.5, creatinine 0.9. AST, ALT all normal. Serum test is negative. IMPRESSION: 1. Incarcerated ventral hernia repair status post laparoscopic repair. 2. Chronic hypertension. 3. Hypertensive heart disease. RECOMMENDATIONS: 1. Postoperative therapy as per Surgery. 2. Continue current blood pressure medications, currently well controlled. 3. Mildly prolonged QT. Keep potassium and magnesium repleted. Minimize ondansetron. 4. DVT prophylaxis. Will follow. Delphine [id number]
[2018-07-24] MEDS: cloNIDine HCL 0.1 MG TABLET PO SCH ×2 (09:31→21:42)
[2018-07-24] MEDS: LABETALOL HCL 200 MG TABLET (FP) PO SCH ×2 (09:31→21:41)
[2018-07-24] MEDS: LACTATED RINGERS SOLUTION 1,000 ML/1,000 ML INFUS.BAG IV SCH ×2 (09:31→20:23)
[2018-07-24] MEDS: NIFEdipine E.R. 90 MG TABLET (FP) PO SCH (09:32)
[2018-07-24] MEDS: LOSARTAN POTASSIUM 25 MG TABLET PO SCH (09:32)
[2018-07-24] MEDS: HEPARIN NA (PORCINE) 5,000 UNITS/ML 1ML VIAL SQ SCH ×2 (09:32→21:41)
--- NOTE | 2018-07-24 12:09 | EKG ---
Test Reason : Blood Pressure : / mmHG Vent. Rate : 064 BPM Atrial Rate : 064 BPM P-R Int : 184 ms QRS Dur : 082 ms QT Int : 468 ms P-R-T Axes : 022 020 023 degrees QTc Int : 482 ms NORMAL SINUS RHYTHM T WAVE ABNORMALITY, CONSIDER ANTERIOR ISCHEMIA PROLONGED QT ABNORMAL ECG Confirmed by MD ARMIN, MICA ([id number]) on 07/24/2018 12:09:28 PM Referred By: Confirmed By:MICA FUNEZ MD
--- NOTE | 2018-07-24 15:54 | PN ---
Progress Note, Physician History of Present Illness: feeling better had some food, tolerted passing gas no BM today - Current Medication List Current Medications: Active Medications Acetaminophen (Tylenol -) 650 mg PO Q4H PRN PRN Reason: PAIN LEVEL 1-5 Atorvastatin Calcium (Lipitor -) 20 mg PO HS [facility] Cefazolin Sodium/Dextrose (Ancef 2 Gm Premixed Ivpb -) 2 gm IVPB Q8H [facility] Stop: 07/24/18 22:29 Last Admin: 07/24/18 15:01 Dose: 2 gm Clonidine (Catapres -) 0.3 mg PO BID [facility] Last Admin: 07/24/18 09:31 Dose: 0.3 mg Heparin Sodium (Porcine) (Heparin -) 5,000 unit SQ BID [facility] Last Admin: 07/24/18 09:32 Dose: 5,000 unit Lactated Ringer's (Lactated Ringers Solution) 1,000 ml in 1,000 mls @ 100 mls/ hr IV ASDIR [facility] Last Admin: 07/24/18 09:31 Dose: 100 mls/hr Ibuprofen (Motrin -) 600 mg PO Q6H PRN PRN Reason: PAIN LEVEL 1-5 Labetalol HCl (Normodyne -) 400 mg PO BID [facility] Last Admin: 07/24/18 09:31 Dose: 400 mg Losartan Potassium (Cozaar -) 25 mg PO DAILY [facility] Last Admin: 07/24/18 09:32 Dose: 25 mg Morphine Sulfate (Morphine Sulfate) 4 mg IVPUSH Q4H PRN PRN Reason: PAIN LEVEL 7 - 10 Last Admin: 07/24/18 15:03 Dose: 4 mg Nifedipine (Procardia Xl -) 90 mg PO DAILY [facility] Last Admin: 07/24/18 09:32 Dose: 90 mg Ondansetron HCl (Zofran Injection) 4 mg IVPUSH Q6H PRN PRN Reason: NAUSEA - Objective Vital Signs: Vital Signs Temperature 98.3 F 07/24/18 10:00 Pulse Rate 87 07/24/18 10:00 Respiratory Rate 18 07/24/18 10:00 Blood Pressure 139/79 07/24/18 10:00 O2 Sat by Pulse Oximetry (%) 96 07/24/18 09:00 Constitutional: Yes: No Distress HENT: Yes: Atraumatic Neck: Yes: Supple Cardiovascular: Yes: Regular Rate and Rhythm Respiratory: Yes: CTA Bilaterally Gastrointestinal: Yes: Hypoactive Bowel Sounds, Tenderness (at the surgey site) Extremities: Yes: WNL Edema: No Peripheral Pulses WNL: Yes Neurological: Yes: Alert, Oriented Labs: CBC, BMP 07/24/18 06:30 07/24/18 06:30 INR, PTT INR 1.10 (0.83-1.09) H 07/23/18 13:41 Problem List - Problems (1) GERD (gastroesophageal reflux disease) Assessment/Plan: on protonix Code(s): K21.9 - GASTRO-ESOPHAGEAL REFLUX DISEASE WITHOUT ESOPHAGITIS Qualifiers: Esophagitis presence: without esophagitis Qualified Code(s): K21.9 - Gastro -esophageal reflux disease without esophagitis (2) HLD (hyperlipidemia) Assessment/Plan: on meds Code(s): E78.5 - HYPERLIPIDEMIA, UNSPECIFIED Qualifiers: Hyperlipidemia type: pure hypercholesterolemia Qualified Code(s): E78.00 - Pure hypercholesterolemia, unspecified; E78.0 - Pure hypercholesterolemia (3) Incarcerated hernia Assessment/Plan: s/p surgerytoday on prn reza meds on regular diet per surgery Code(s): K46.0 - UNSP ABDOMINAL HERNIA WITH OBSTRUCTION, WITHOUT GANGRENE (4) HTN (hypertension) Assessment/Plan: on meds stable Code(s): I10 - ESSENTIAL (PRIMARY) HYPERTENSION Qualifiers: Hypertension type: essential hypertension Qualified Code(s): I10 - Essential (primary) hypertension Assessment/Plan COVERING FOR DR CHAVO KAUR
[2018-07-24] MEDS: PANTOPRAZOLE 40 MG TABLET (FP) PO SCH (17:28)
[2018-07-24] MEDS: ATORVASTATIN CA 20 MG TABLET (FP) PO SCH (21:42)
[2018-07-24] MEDS: CEFAZOLIN 2 GM/D5W 2 GM/50 ML ML IVPB SCH (22:21)
[2018-07-25] MEDS: CEFAZOLIN 2 GM/D5W 2 GM/50 ML ML IVPB SCH ×3 (03:52→16:08)
[2018-07-25] MEDS: morphine SULFATE 4 MG/ML VIAL IVPUSH PRN ×3 (04:24→20:06)
[2018-07-25] MEDS: LACTATED RINGERS SOLUTION 1,000 ML/1,000 ML INFUS.BAG IV SCH (07:32)
[2018-07-25 07:34] LABS: BASO % 0.5 % (0-2.0); EOS % 2.1 % (0-4.5); HEMATOCRIT 31.4 % (32.4-45.2); HEMOGLOBIN 10.6 GM/dL (10.7-15.3); LYMPH % 24.5 % (8-40); MCH 30.3 pg (25.7-33.7); MCHC 33.6 g/dl (32.0-36.0); MEAN CELL VOLUME 90.1 fl (80-96); MEAN PLT VOLUME 8.7 fl (7.5-11.1); MONO % 6.2 % (3.8-10.2); NEUT % 66.7 % (42.8-82.8); PLATELET COUNT 217 K/MM3 (134-434); RBC 3.49 M/mm3 (3.60-5.2); RDW 13.5 % (11.6-15.6); WHITE BLOOD COUNT 9.1 K/mm3 (4.0-10.0)
[2018-07-25 08:05] LABS: ALBUMIN 2.6 g/dl (3.4-5.0); ALK PHOS 76 U/L (45-117); ANION GAP 8 MMOL/L (8-16); BILIRUBIN,TOTAL 0.4 mg/dL (0.2-1); BLOOD UREA NITROGEN 8 mg/dL (7-18); CHLORIDE 106 mmol/L (98-107); CO2 28 mmol/L (21-32); CREATININE 0.8 mg/dL (0.55-1.3); GLUCOSE,RANDOM 99 mg/dL (74-106); POTASSIUM 3.4 mmol/L (3.5-5.1); SGOT/AST 13 U/L (15-37); SGPT/ALT 11 U/L (13-61); SODIUM 142 mmol/L (136-145); TOT PROT 5.7 g/dl (6.4-8.2)
[2018-07-25] MEDS ORDERED: PT OWN MED DRAWER 7, Y5N ONE (10:43)
[2018-07-25] MEDS: cloNIDine HCL 0.1 MG TABLET PO SCH ×2 (10:45→22:28)
[2018-07-25] MEDS: PANTOPRAZOLE 40 MG TABLET (FP) PO SCH (10:45)
[2018-07-25] MEDS: HEPARIN NA (PORCINE) 5,000 UNITS/ML 1ML VIAL SQ SCH ×2 (10:45→22:29)
[2018-07-25] MEDS: LABETALOL HCL 200 MG TABLET (FP) PO SCH ×2 (10:45→22:28)
[2018-07-25] MEDS: NIFEdipine E.R. 90 MG TABLET (FP) PO SCH (10:45)
[2018-07-25] MEDS: LOSARTAN POTASSIUM 25 MG TABLET PO SCH (10:45)
--- NOTE | 2018-07-25 18:29 | PN ---
Progress Note, Physician Chief Complaint: abdominal pain History of Present Illness: 42 yo PMH HTN, HLD, obesity and GERD s/p presents to the ED with complaints of abdominal pain. - Current Medication List Current Medications: Active Medications Acetaminophen (Tylenol -) 650 mg PO Q4H PRN PRN Reason: PAIN LEVEL 1-5 Atorvastatin Calcium (Lipitor -) 20 mg PO HS [facility] Last Admin: 07/24/18 21:42 Dose: 20 mg Clonidine (Catapres -) 0.3 mg PO BID [facility] Last Admin: 07/25/18 10:45 Dose: 0.3 mg Heparin Sodium (Porcine) (Heparin -) 5,000 unit SQ BID [facility] Last Admin: 07/25/18 10:45 Dose: 5,000 unit Lactated Ringer's (Lactated Ringers Solution) 1,000 ml in 1,000 mls @ 100 mls/ hr IV ASDIR [facility] Last Admin: 07/25/18 07:32 Dose: 100 mls/hr Cefazolin Sodium/Dextrose (Ancef 2 Gm Premixed Ivpb -) 2 gm in 50 mls @ 100 mls /hr IVPB Q6H [facility] Stop: 07/25/18 22:14 Last Admin: 07/25/18 16:08 Dose: 100 mls/hr Ibuprofen (Motrin -) 600 mg PO Q6H PRN PRN Reason: PAIN LEVEL 1-5 Labetalol HCl (Normodyne -) 400 mg PO BID [facility] Last Admin: 07/25/18 10:45 Dose: 400 mg Losartan Potassium (Cozaar -) 25 mg PO DAILY [facility] Last Admin: 07/25/18 10:45 Dose: 25 mg Morphine Sulfate (Morphine Sulfate) 4 mg IVPUSH Q4H PRN PRN Reason: PAIN LEVEL 7 - 10 Last Admin: 07/25/18 10:47 Dose: 4 mg Nifedipine (Procardia Xl -) 90 mg PO DAILY [facility] Last Admin: 07/25/18 10:45 Dose: 90 mg Ondansetron HCl (Zofran Injection) 4 mg IVPUSH Q6H PRN PRN Reason: NAUSEA Pantoprazole Sodium (Protonix -) 40 mg PO DAILY [facility] Last Admin: 07/25/18 10:45 Dose: 40 mg - Objective Vital Signs: Vital Signs Temperature 98.5 F 07/25/18 17:22 Pulse Rate 74 07/25/18 17:22 Respiratory Rate 18 07/25/18 17:22 Blood Pressure 92/62 07/25/18 17:22 O2 Sat by Pulse Oximetry (%) 95 07/24/18 21:00 Vital Signs Period Temp Pulse Resp BP Sys/Quinteros Pulse Ox Last 24 Hr 98 F-98.6 F 70-84 18-20 92-152/62-86 95 Constitutional: Yes: Well Nourished, No Distress, Calm, Obese Eyes: Yes: Conjunctiva Clear, EOM Intact HENT: Yes: Atraumatic, Normocephalic Neck: Yes: Supple, Trachea Midline Cardiovascular: Yes: Regular Rate and Rhythm, S1, S2 Respiratory: Yes: Regular, CTA Bilaterally Gastrointestinal: Yes: Normal Bowel Sounds, Soft, Abdomen, Obese. No: Melena, Vomiting ...Rectal Exam: No: Deferred Genitourinary: No: CVA Tenderness - Left, CVA Tenderness - Right Breast(s): No: Mass, Nipple Inversion Musculoskeletal: No: Joint Stiffness, Joint Swelling, Muscle Pain Extremities: No: Cold, Cool Edema: No Peripheral Pulses WNL: Yes Peripheral Pulses: Left Radial: 2+, Right Radial: 2+, Left Doralis Pedis: 2+, Right Dorsalis Pedis: 2+ Integumentary: No: Incision, Jaundice Wound/Incision: Yes: Clean/Dry, Well Approximated, Open to air, Other (dermabond ) Neurological: Yes: Alert, Oriented Psychiatric: Yes: Alert Labs: CBC, BMP 07/25/18 06:30 07/25/18 06:30 INR, PTT INR 1.10 (0.83-1.09) H 07/23/18 13:41 Problem List - Problems (1) Ventral hernia without obstruction or gangrene Assessment/Plan: 42 yo female MMP obesity incarcerated ventral hernia in the supraumbilical position with bowel involvement POD#2 s/p Laparoscopic Ventral Hernia repair with mesh. Diet as tolerated IVF hydration IV antibiotics for 24hours adequate analgesia encourage IS OOB and ambulate Discharge at the discretion of primary team Code(s): K43.9 - VENTRAL HERNIA WITHOUT OBSTRUCTION OR GANGRENE (2) Obesity (BMI 30.0-34.9) Code(s): E66.9 - OBESITY, UNSPECIFIED (3) HLD (hyperlipidemia) Code(s): E78.5 - HYPERLIPIDEMIA, UNSPECIFIED Qualifiers: Hyperlipidemia type: pure hypercholesterolemia Qualified Code(s): E78.00 - Pure hypercholesterolemia, unspecified; E78.0 - Pure hypercholesterolemia (4) GERD (gastroesophageal reflux disease) Code(s): K21.9 - GASTRO-ESOPHAGEAL REFLUX DISEASE WITHOUT ESOPHAGITIS Qualifiers: Esophagitis presence: without esophagitis Qualified Code(s): K21.9 - Gastro -esophageal reflux disease without esophagitis (5) HTN (hypertension) Code(s): I10 - ESSENTIAL (PRIMARY) HYPERTENSION Qualifiers: Hypertension type: essential hypertension Qualified Code(s): I10 - Essential (primary) hypertension
--- NOTE | 2018-07-25 18:55 | HP ---
Admitting History and Physical - Past Medical History Cardiovascular: Yes: HTN, Hyperlipdemia Gastrointestinal: Yes: GERD ...LMP: 07/18/18 ...: No (tubes tied) - Past Surgical History Past Surgical History: Yes: , Tubal Ligation Additional Past Surgical History: Sinusis surgery - Advance Directives Advance Directives: Yes: Living Will - Smoking History Smoking history: Never smoked Have you smoked in the past 12 months: No Aproximately how many cigarettes per day: 0 - Alcohol/Substance Use Hx Alcohol Use: No - Social History Occupation: [employer] History of Recent Travel: No Home Medications - Allergies Allergies/Adverse Reactions: Allergies Allergy/AdvReac Type Severity Reaction Status Date / Time No Known Allergies Allergy Verified 07/23/18 11:17 - Home Medications Home Medications: Ambulatory Orders Labetalol HCl 400 mg PO BID 07/20/12 Atorvastatin Ca [Lipitor] 20 mg PO HS 08/26/17 Clonidine HCl 0.3 mg PO BID 08/26/17 Losartan Potassium 25 mg PO DAILY 08/26/17 Nifedipine [Procardia Xl] 90 mg PO DAILY 08/26/17 Physical Examination Vital Signs: Vital Signs Temperature 98.5 F 07/25/18 17:22 Pulse Rate 74 07/25/18 17:22 Respiratory Rate 18 07/25/18 17:22 Blood Pressure 92/62 07/25/18 17:22 O2 Sat by Pulse Oximetry (%) 95 07/24/18 21:00 Labs: CBC, BMP 07/25/18 06:30 07/25/18 06:30 Problem List - Problems (1) Ventral hernia without obstruction or gangrene Code(s): K43.9 - VENTRAL HERNIA WITHOUT OBSTRUCTION OR GANGRENE (2) HTN (hypertension) Code(s): I10 - ESSENTIAL (PRIMARY) HYPERTENSION Qualifiers: Hypertension type: essential hypertension Qualified Code(s): I10 - Essential (primary) hypertension (3) GERD (gastroesophageal reflux disease) Code(s): K21.9 - GASTRO-ESOPHAGEAL REFLUX DISEASE WITHOUT ESOPHAGITIS Qualifiers: Esophagitis presence: without esophagitis Qualified Code(s): K21.9 - Gastro -esophageal reflux disease without esophagitis (4) HLD (hyperlipidemia) Code(s): E78.5 - HYPERLIPIDEMIA, UNSPECIFIED Qualifiers: Hyperlipidemia type: pure hypercholesterolemia Qualified Code(s): E78.00 - Pure hypercholesterolemia, unspecified; E78.0 - Pure hypercholesterolemia
[2018-07-25] MEDS ORDERED: POTASSIUM CHLORIDE TABS 20 MEQ TABLET.ER (FP) PO ONE (19:30)
[2018-07-25] MEDS: ATORVASTATIN CA 20 MG TABLET (FP) PO SCH (22:28)
--- NOTE | 2018-07-26 09:07 | PN ---
Progress Note, Physician Chief Complaint: no chest pain or SOB Out of bed. - Current Medication List Current Medications: Active Medications Acetaminophen (Tylenol -) 650 mg PO Q4H PRN PRN Reason: PAIN LEVEL 1-5 Atorvastatin Calcium (Lipitor -) 20 mg PO HS [facility] Last Admin: 07/25/18 22:28 Dose: 20 mg Clonidine (Catapres -) 0.3 mg PO BID [facility] Last Admin: 07/25/18 22:28 Dose: 0.3 mg Heparin Sodium (Porcine) (Heparin -) 5,000 unit SQ BID [facility] Last Admin: 07/25/18 22:29 Dose: 5,000 unit Lactated Ringer's (Lactated Ringers Solution) 1,000 ml in 1,000 mls @ 100 mls/ hr IV ASDIR [facility] Last Admin: 07/25/18 07:32 Dose: 100 mls/hr Ibuprofen (Motrin -) 600 mg PO Q6H PRN PRN Reason: PAIN LEVEL 1-5 Labetalol HCl (Normodyne -) 400 mg PO BID [facility] Last Admin: 07/25/18 22:28 Dose: 400 mg Losartan Potassium (Cozaar -) 25 mg PO DAILY [facility] Last Admin: 07/25/18 10:45 Dose: 25 mg Morphine Sulfate (Morphine Sulfate) 4 mg IVPUSH Q4H PRN PRN Reason: PAIN LEVEL 7 - 10 Last Admin: 07/25/18 20:06 Dose: 4 mg Nifedipine (Procardia Xl -) 90 mg PO DAILY [facility] Last Admin: 07/25/18 10:45 Dose: 90 mg Ondansetron HCl (Zofran Injection) 4 mg IVPUSH Q6H PRN PRN Reason: NAUSEA Pantoprazole Sodium (Protonix -) 40 mg PO DAILY [facility] Last Admin: 07/25/18 10:45 Dose: 40 mg - Objective Vital Signs: Vital Signs Temperature 98.7 F 07/26/18 06:00 Pulse Rate 76 07/26/18 06:00 Respiratory Rate 18 07/26/18 06:00 Blood Pressure 128/84 07/26/18 06:00 O2 Sat by Pulse Oximetry (%) 95 07/24/18 21:00 Constitutional: Yes: Calm Cardiovascular: Yes: Regular Rate and Rhythm Respiratory: Yes: CTA Bilaterally Gastrointestinal: Yes: Soft (nontender) Edema: No Neurological: Yes: Alert, Oriented ...Motor Strength: WNL Labs: CBC, BMP 07/25/18 06:30 07/25/18 06:30 INR, PTT INR 1.10 (0.83-1.09) H 07/23/18 13:41 Laboratory Tests 07/25/18 07/25/18 06:30 06:30 WBC 9.1 Hgb 10.6 L Plt Count 217 D Sodium 142 Potassium 3.4 L Creatinine 0.8 - ....Imaging EKG: Image Reviewed Assessment/Plan IMP: Incarcerated ventral hernia, s/p lap repair Chronic HTN Hypertensive Heart disease REC: 1. Tolerated surgery well, BP controlled. 2. Out of bed, ambulation as per surgery. Will sign off today. Please call again as/if needed. Thank you
--- NOTE | 2018-07-26 10:05 | PN ---
Progress Note, Physician Chief Complaint: abdominal pain History of Present Illness: 42 yo PMH HTN, HLD, obesity and GERD s/p presents to the ED with complaints of abdominal pain. - Current Medication List Current Medications: Active Medications Acetaminophen (Tylenol -) 650 mg PO Q4H PRN PRN Reason: PAIN LEVEL 1-5 Atorvastatin Calcium (Lipitor -) 20 mg PO HS [facility] Last Admin: 07/25/18 22:28 Dose: 20 mg Clonidine (Catapres -) 0.3 mg PO BID [facility] Last Admin: 07/25/18 22:28 Dose: 0.3 mg Heparin Sodium (Porcine) (Heparin -) 5,000 unit SQ BID [facility] Last Admin: 07/25/18 22:29 Dose: 5,000 unit Lactated Ringer's (Lactated Ringers Solution) 1,000 ml in 1,000 mls @ 100 mls/ hr IV ASDIR [facility] Last Admin: 07/25/18 07:32 Dose: 100 mls/hr Ibuprofen (Motrin -) 600 mg PO Q6H PRN PRN Reason: PAIN LEVEL 1-5 Labetalol HCl (Normodyne -) 400 mg PO BID [facility] Last Admin: 07/25/18 22:28 Dose: 400 mg Losartan Potassium (Cozaar -) 25 mg PO DAILY [facility] Last Admin: 07/25/18 10:45 Dose: 25 mg Morphine Sulfate (Morphine Sulfate) 4 mg IVPUSH Q4H PRN PRN Reason: PAIN LEVEL 7 - 10 Last Admin: 07/25/18 20:06 Dose: 4 mg Nifedipine (Procardia Xl -) 90 mg PO DAILY [facility] Last Admin: 07/25/18 10:45 Dose: 90 mg Ondansetron HCl (Zofran Injection) 4 mg IVPUSH Q6H PRN PRN Reason: NAUSEA Pantoprazole Sodium (Protonix -) 40 mg PO DAILY [facility] Last Admin: 07/25/18 10:45 Dose: 40 mg - Objective Vital Signs: Vital Signs Temperature 98.7 F 07/26/18 06:00 Pulse Rate 76 07/26/18 06:00 Respiratory Rate 18 07/26/18 06:00 Blood Pressure 128/84 07/26/18 06:00 O2 Sat by Pulse Oximetry (%) 95 07/24/18 21:00 Constitutional: Yes: Well Nourished, No Distress, Calm, Obese Eyes: Yes: Conjunctiva Clear, EOM Intact HENT: Yes: Atraumatic, Normocephalic Neck: Yes: Supple, Trachea Midline Cardiovascular: Yes: Regular Rate and Rhythm, S1, S2 Respiratory: Yes: Regular, CTA Bilaterally Gastrointestinal: Yes: Normal Bowel Sounds, Soft. No: Tenderness ...Rectal Exam: Yes: Deferred Genitourinary: Yes: CVA Tenderness - Left, CVA Tenderness - Right Musculoskeletal: No: Muscle Pain, Muscle Weakness Extremities: Yes: Cool, Cyanosis Edema: No Peripheral Pulses WNL: Yes Peripheral Pulses: Left Radial: 2+, Right Radial: 2+, Left Doralis Pedis: 2+, Right Dorsalis Pedis: 2+ Integumentary: Yes: Jaundice. No: Rash Wound/Incision: Yes: Clean/Dry, Well Approximated, Open to air Neurological: Yes: Alert, Oriented Psychiatric: Yes: Alert, Oriented Labs: CBC, BMP 07/25/18 06:30 07/25/18 06:30 INR, PTT INR 1.10 (0.83-1.09) H 07/23/18 13:41 Problem List - Problems (1) Ventral hernia without obstruction or gangrene Assessment/Plan: 42 yo female MMP obesity incarcerated ventral hernia in the supraumbilical position with bowel involvement POD#3 s/p Laparoscopic Ventral Hernia repair with mesh. Diet as tolerated IVF hydration IV antibiotics for 24hours adequate analgesia encourage IS OOB and ambulate Discharge at the discretion of primary team Code(s): K43.9 - VENTRAL HERNIA WITHOUT OBSTRUCTION OR GANGRENE (2) Obesity (BMI 30.0-34.9) Code(s): E66.9 - OBESITY, UNSPECIFIED (3) HLD (hyperlipidemia) Code(s): E78.5 - HYPERLIPIDEMIA, UNSPECIFIED Qualifiers: Hyperlipidemia type: pure hypercholesterolemia Qualified Code(s): E78.00 - Pure hypercholesterolemia, unspecified; E78.0 - Pure hypercholesterolemia (4) GERD (gastroesophageal reflux disease) Code(s): K21.9 - GASTRO-ESOPHAGEAL REFLUX DISEASE WITHOUT ESOPHAGITIS Qualifiers: Esophagitis presence: without esophagitis Qualified Code(s): K21.9 - Gastro -esophageal reflux disease without esophagitis (5) HTN (hypertension) Code(s): I10 - ESSENTIAL (PRIMARY) HYPERTENSION Qualifiers: Hypertension type: essential hypertension Qualified Code(s): I10 - Essential (primary) hypertension
[2018-07-26] MEDS ORDERED: PT OWN MED DRAWER 7, Y5N ONE (10:14)
[2018-07-26 10:22] VITALS: BP 132/64; PULSE 65; TEMP 97.6
[2018-07-26] MEDS: LABETALOL HCL 200 MG TABLET (FP) PO SCH (10:23)
[2018-07-26] MEDS: LOSARTAN POTASSIUM 25 MG TABLET PO SCH (10:23)
[2018-07-26] MEDS: PANTOPRAZOLE 40 MG TABLET (FP) PO SCH (10:23)
[2018-07-26] MEDS: cloNIDine HCL 0.1 MG TABLET PO SCH (10:23)
[2018-07-26] MEDS: NIFEdipine E.R. 90 MG TABLET (FP) PO SCH (10:24)
[2018-07-26] MEDS: HEPARIN NA (PORCINE) 5,000 UNITS/ML 1ML VIAL SQ SCH (10:24)
[2018-07-26] MEDS: LACTATED RINGERS SOLUTION 1,000 ML/1,000 ML INFUS.BAG IV SCH (10:29)
== END 2018-07-26 14:05 | disposition home or self-care (01) | DRG 227 ==
LOC: JER 11:14 → SUPCPDRO 11:14 → JERBED 15:36 → J8W 21:29
PROVIDERS: ADMIT Internal Medicine; ATTEND Internal Medicine
PROC: 0WUF4JZ Supplement Abdominal Wall with Synthetic Substitute, Percutaneous Endoscopic Approach (ICD-10-PCS; principal; 2018-07-23 15:00)
DX: K43.9 Ventral hernia without obstruction or gangrene (principal); E66.8 Other obesity; Z68.33 Body mass index [BMI] 33.0-33.9, adult; E78.00 Pure hypercholesterolemia, unspecified; K21.9 Gastro-esophageal reflux disease without esophagitis; I11.9 Hypertensive heart disease without heart failure
CPT/HCPCS: 36415; 74176-TC; 80053; 84703; 85025; 85610; 85730; 86850; 86900; 86901; 87081; 93005; 93010; 94760; 99283-25; J0735; J1644; J7030

== ENCOUNTER 2022-01-03 16:23 | Emergency (ER) | payer OTHER ==
[2022-01-03 16:30] VITALS: TEMP 97.8; BMI 31.5
[2022-01-03] MEDS ORDERED: ACETAMINOPHEN 1000 MG/100 ML BAG IVPB ONE (17:32)
[2022-01-03] MEDS ORDERED: LABETALOL HCL 100 MG TABLET (FP) PO ONE (17:32)
[2022-01-03] MEDS ORDERED: cloNIDine HCL 0.1 MG TABLET PO ONE (17:32)
[2022-01-03] MEDS ORDERED: cloNIDine HCL 0.1 MG TABLET ONE (18:03)
[2022-01-03] MEDS ORDERED: LABETALOL HCL 100 MG TABLET (FP) ONE (18:03)
[2022-01-03] MEDS ORDERED: ACETAMINOPHEN INJECTION 100 ML IVPB ONE (18:04)
[2022-01-03 19:56] LABS: BASO % 0.8 % (0-2.0); EOS % 2.5 % (0-4.5); HEMOGLOBIN 12.8 GM/dL (10.7-15.3); LYMPH % 26.6 % (8-40); MCHC 33.6 g/dl (32.0-36.0); MEAN CELL VOLUME 86.4 fl (80-96); MEAN PLT VOLUME 9.2 fl (7.5-11.1); MONO % 4.2 % (3.8-10.2); NEUT % 65.9 % (42.8-82.8); PLATELET COUNT 287 10^3/uL (134-434); RDW 14.4 % (11.6-15.6); WHITE BLOOD COUNT 9.7 K/mm3 (4.0-10.0)
[2022-01-03 20:22] LABS: ALBUMIN 3.8 g/dl (3.4-5.0)
[2022-01-03 20:23] LABS: BLOOD UREA NITROGEN 14.4 mg/dL (7-18); MAGNESIUM 2.1 mg/dL (1.8-2.4)
[2022-01-03 20:25] LABS: CREATININE 0.8 mg/dL (0.55-1.3); PHOSPHOROUS 3.8 mg/dL (2.5-4.9)
[2022-01-03 20:27] LABS: BILIRUBIN,TOTAL 0.3 mg/dL (0.2-1); TOT PROT 7.6 g/dl (6.4-8.2)
[2022-01-03 21:20] VITALS: BP 128/88; PULSE 68
== END 2022-01-03 22:38 | disposition home or self-care (01) ==
LOC: JER 16:23
PROC: 3E033GC Introduction of Other Therapeutic Substance into Peripheral Vein, Percutaneous Approach (ICD-10-PCS; principal; 2022-01-03)
DX: R51.9 Headache, unspecified (principal); I10 Essential (primary) hypertension
CPT/HCPCS: 36415; 80053; 83735; 84100; 84484; 84703; 85025; 93005; 93010; 99284-25; J0735

== ENCOUNTER 2022-12-16 16:58 | Emergency (ER) | payer OTHER ==
[2022-12-16 17:05] VITALS: PULSE 83; RESP 18; BMI 31.5
[2022-12-16] MEDS ORDERED: ACETAMINOPHEN 1000 MG/100 ML BAG IVPB ONE (18:03)
[2022-12-16] MEDS ORDERED: METOCLOPRAMIDE HCL INJECTION 10 MG/2 ML VIAL IVPUSH ONE (18:03)
[2022-12-16] MEDS ORDERED: MAGNESIUM SULF 50% (8.12 MEQ/2 ML-1 GM VIAL) IVPB ONE (18:04)
[2022-12-16] MEDS ORDERED: SODIUM CHLORIDE 1,000 ML IV STA (18:05)
[2022-12-16] MEDS ORDERED: MAGNESIUM SULF 50% (8.12 MEQ/2 ML-1 GM VIAL) ONE (18:15)
[2022-12-16] MEDS ORDERED: METOCLOPRAMIDE HCL INJECTION 10 MG/2 ML VIAL ONE (18:15)
[2022-12-16 19:05] LABS: BASO % 0.8 % (0-2.0); EOS % 1.4 % (0-4.5); HEMATOCRIT 33.5 % (32.4-45.2); LYMPH % 16.7 % (8-40); MEAN PLT VOLUME 8.5 fl (7.5-11.1); MONO % 3.4 % (3.8-10.2); NEUT % 77.7 % (42.8-82.8); PLATELET COUNT 275 10^3/uL (134-434); RBC 3.94 M/mm3 (3.60-5.2); RDW 14.5 % (11.6-15.6); WHITE BLOOD COUNT 10.2 K/mm3 (4.0-10.0)
[2022-12-16 19:25] LABS: CALCIUM 8.8 mg/dL (8.5-10.1)
[2022-12-16 19:26] LABS: ALBUMIN 3.2 g/dl (3.4-5.0); BLOOD UREA NITROGEN 11.7 mg/dL (7-18)
[2022-12-16 19:31] LABS: BILIRUBIN,TOTAL 0.2 mg/dL (0.2-1); TOT PROT 6.8 g/dl (6.4-8.2)
[2022-12-16] MEDS ORDERED: KETOROLAC TROMETHAMINE 15 MG/ML VIAL IVPUSH ONE (19:36)
[2022-12-16] MEDS ORDERED: KETOROLAC TROMETHAMINE 15 MG/ML VIAL ONE (20:32)
[2022-12-16 21:01] LABS: EPI CELLS 6 /uL (0-25.1); HYALINE CASTS 0 /uL (0-3.1); PH,URINE 5.5 (5.0-8.0); URINE APPEARANCE CLEAR; URINE BACTERIA >9,000 /uL (0-1359); URINE BILIRUBIN NEGATIVE (NEGATIVE); URINE COLOR YELLOW; URINE GLUCOSE (UA) NEGATIVE (NEGATIVE); URINE KETONE NEGATIVE (NEGATIVE); URINE LEUK ESTERASE 1+ (NEGATIVE); URINE NITRITE POSITIVE (NEGATIVE); URINE PROTEIN NEGATIVE (NEGATIVE); URINE RBC 806 /uL (0-23.9); URINE UROBILINOGEN 0.2 mg/dL (0.2-1.0); URINE WBC 55 /uL (0-25.8)
[2022-12-16] MEDS ORDERED: SULFAMETHOXAZOLE/TRIMETHOPRIM 800MG/160MG D.S. TABLET PO ONE (22:34)
[2022-12-16 22:45] VITALS: BP 163/100; TEMP 98.2
[2022-12-16] MEDS ORDERED: SULFAMETHOXAZOLE/TRIMETHOPRIM 800MG/160MG D.S. TABLET ONE (22:53)
== END 2022-12-16 22:58 | disposition home or self-care (01) ==
LOC: JER 16:58
PROC: 3E033GC Introduction of Other Therapeutic Substance into Peripheral Vein, Percutaneous Approach (ICD-10-PCS; principal; 2022-12-16)
PROC: 3E0333Z Introduction of Anti-inflammatory into Peripheral Vein, Percutaneous Approach (ICD-10-PCS; 2022-12-16)
PROC: 3E033GC Introduction of Other Therapeutic Substance into Peripheral Vein, Percutaneous Approach (ICD-10-PCS; 2022-12-16)
PROC: 3E033GC Introduction of Other Therapeutic Substance into Peripheral Vein, Percutaneous Approach (ICD-10-PCS; 2022-12-16)
PROC: 3E0337Z Introduction of Electrolytic and Water Balance Substance into Peripheral Vein, Percutaneous Approach (ICD-10-PCS; 2022-12-16)
DX: R51.9 Headache, unspecified (principal); R07.9 Chest pain, unspecified; M79.602 Pain in left arm; I10 Essential (primary) hypertension; Z20.822 Contact with and (suspected) exposure to COVID-19
CPT/HCPCS: 0241U-QW; 36415; 71045-TC-FY; 80053; 81003; 84484; 84703; 85025; 87086; 87186; 93005; 93010; 99285-25

== ENCOUNTER 2023-02-23 12:59 | Emergency (ER) | payer OTHER ==
[2023-02-23 13:02] VITALS: TEMP 98.5; BMI 31.5
[2023-02-23] MEDS ORDERED: IBUPROFEN 400 MG TABLET (FP) PO ONE ×2 (13:24→13:27)
[2023-02-23 14:34] LABS: BASO % 1.1 % (0-2.0); EOS % 3.9 % (0-4.5); HEMATOCRIT 36.6 % (32.4-45.2); HEMOGLOBIN 11.7 GM/dL (10.7-15.3); LYMPH % 25.2 % (8-40); MCHC 31.9 g/dl (32.0-36.0); MEAN CELL VOLUME 84.6 fl (80-96); MONO % 6.2 % (3.8-10.2); NEUT % 63.6 % (42.8-82.8); PLATELET COUNT 279 10^3/uL (134-434); RBC 4.33 M/mm3 (3.60-5.2); RDW 14.8 % (11.6-15.6)
[2023-02-23 14:42] LABS: HCG,QUALITATIVE URINE Negative
[2023-02-23 14:53] LABS: POTASSIUM 3.9 mmol/L (3.5-5.1)
[2023-02-23 14:56] LABS: ALBUMIN 3.7 g/dl (3.4-5.0); BLOOD UREA NITROGEN 20.1 mg/dL (7-18); CALCIUM 9.2 mg/dL (8.5-10.1)
[2023-02-23] MEDS ORDERED: ACETAMINOPHEN 325 MG TABLET (FP) PO ONE (14:56)
[2023-02-23 15:00] LABS: BILIRUBIN,TOTAL 0.2 mg/dL (0.2-1); EPI CELLS >36 /uL (0-25.1); HYALINE CASTS 0 /uL (0-3.1); PH,URINE 5.5 (5.0-8.0); TOT PROT 7.4 g/dl (6.4-8.2); URINE APPEARANCE CLEAR; URINE BACTERIA >9,000 /uL (0-1359); URINE BILIRUBIN NEGATIVE (NEGATIVE); URINE COLOR YELLOW; URINE GLUCOSE (UA) NEGATIVE (NEGATIVE); URINE KETONE NEGATIVE (NEGATIVE); URINE LEUK ESTERASE TRACE (NEGATIVE); URINE NITRITE NEGATIVE (NEGATIVE); URINE PROTEIN NEGATIVE (NEGATIVE); URINE RBC 50 /uL (0-23.9); URINE UROBILINOGEN 0.2 mg/dL (0.2-1.0); URINE WBC 71 /uL (0-25.8)
[2023-02-23 15:03] LABS: THROAT:GRP A STREP NOT DETECTED (NOTDETECTED)
[2023-02-23] MEDS ORDERED: ACETAMINOPHEN 325 MG TABLET (FP) ONE (15:12)
[2023-02-23 19:35] VITALS: BP 150/94; PULSE 73; RESP 18
== END 2023-02-23 19:46 | disposition home or self-care (01) ==
LOC: JERFT 12:59
DX: H92.02 Otalgia, left ear (principal); E04.1 Nontoxic single thyroid nodule; H61.892 Other specified disorders of left external ear; Z20.822 Contact with and (suspected) exposure to COVID-19
CPT/HCPCS: 0241U-QW; 36415; 70491-TC; 80053; 81003; 84703; 85025; 87651; 99285-25; Q9967

== ENCOUNTER 2024-11-07 07:06 | Day surgery (SDC) | payer OTHER ==
[2024-11-06 15:53] VITALS: BMI 31.5
[2024-11-07] MEDS: DEXAMETHASONE SOD PHOSPHATE 10 MG/1 ML VIAL IVPUSH ONE
[2024-11-07] MEDS: LIDOCAINE HCL 1%, 10 MG/ML (50 mL VIAL) INF ONE
[2024-11-07] MEDS: IOHEXOL 180 MG/1 ML ML IJ ONE
[2024-11-07] MEDS ORDERED: ACETAMINOPHEN 500 MG TABLET (FP) PO PRN (17:04)
[2024-11-07 17:16] VITALS: BP 183/108; PULSE 64; RESP 20; TEMP 97.3
== END 2024-11-07 17:15 | disposition home or self-care (01) ==
LOC: JASU-SURG 07:06
PROVIDERS: ATTEND Pain Medicine Pain Medicine
DX: Z53.8 Procedure and treatment not carried out for other reasons (principal)
CPT/HCPCS: 81025; J1100

== ENCOUNTER → 2025-06-25 | Day surgery (SDC) | payer OTHER | END | disposition home or self-care (01) | LOC: JRADUS-SUR 10:51 | PROVIDERS: ATTEND Nurse Practitioner Family | PROC: 0H9T3ZX Drainage of Right Breast, Percutaneous Approach, Diagnostic (ICD-10-PCS; principal; 2025-06-25) | DX: N60.11 Diffuse cystic mastopathy of right breast (principal) | CPT/HCPCS: 19083; 76942-TC; 77065-TC; 87899; A4648 ==